=== PATIENT | male | born 1995 ===

== ENCOUNTER 2016-12-04 20:44 | Emergency (ER) | payer MEDICAID ==
[2016-12-04 20:59] VITALS: BP 128/68; PULSE 55; RESP 16; TEMP 98.1; O2SAT 100
--- NOTE | 2016-12-04 21:51 | ED PDOC ---
HPI: Male Pain Time Seen by Provider: 12/04/16 21:05 Chief Complaint (Nursing): Male Genitourinary Chief Complaint (Provider): Male Genitourinary History Per: Patient History/Exam Limitations: no limitations Onset/Duration Of Symptoms: Days Current Symptoms Are (Timing): Still Present Additional Complaint(s): 21 y/o male presents to the emergency department with a complaint of groin pain with swelling and a "cut" to the foreskin of her penis. Reports he went to [facility] last night, 12/03/2016, and received 2 antibiotics while in ED (Names unknown), and diagnosed with hydrocele. States he feels worse and had not taken medications for the relief of symptoms. Pt reports he had bloodwork done, and genital swabs and was told he would receive a call with results Of note, patient had a testicular ultrasound completed yesterday with no acute findings such as torsion and had results on him (read by me). Past Medical History Reviewed: Historical Data, Nursing Documentation, Vital Signs Vital Signs: Last Vital Signs Temp 98.1 F 12/04/16 20:56 Pulse 55 L 12/04/16 20:56 Resp 16 12/04/16 20:56 BP 128/68 12/04/16 20:56 Pulse Ox 100 12/04/16 20:56 - Medical History PMH: Sexually Transmitted Disease (Herpes) - Family History Family History: States: No Known Family Hx - Home Medications Home Medications: Ambulatory Orders Medication Instructions Recorded Acyclovir [Zovirax] 400 mg PO TID 7 Days tablet 12/04/16 Ibuprofen [Motrin] 600 mg PO Q6 #20 tab 12/04/16 - Allergies Allergies/Adverse Reactions: Allergies Allergy/AdvReac Type Severity Reaction Status Date / Time No Known Allergies Allergy Verified 12/04/16 20:56 Review of Systems ROS Statement: Except As Marked, All Systems Reviewed And Found Negative Genitourinary Male: Positive for: Penile Pain (with swelling) Physical Exam - Reviewed Nursing Documentation Reviewed: Yes Vital Signs Reviewed: Yes - Physical Exam Appears: Positive for: Non-toxic, No Acute Distress Head Exam: Positive for: ATRAUMATIC, NORMAL INSPECTION, NORMOCEPHALIC Skin: Positive for: Normal Color, Warm, Dry Male Genital Exam: Positive for: inguinal tenderness (Crease, b/l), other ( positive erythematous ulceration consisted with herpetic lesion to penile shaft ) Neurologic/Psych: Positive for: Alert, Oriented (x3) - ECG O2 Sat by Pulse Oximetry: 100 (RA) Pulse Ox Interpretation: Normal Medical Decision Making Medical Decision Making: Time: 21:15 Initial impression: Herpes Initial plan: Herpes virus discussed with Pt at length Started on Acyclovir and given motrin PO PRN Advised to follow up on results from [facility] Safe sex practices discussed as well Scribe Attestation: Documented by Brandi Alcala, acting as a scribe for Lucy Bueno PA-C Provider Scribe Attestation: All medical record entries made by the Scribe were at my direction and personally dictated by me. I have reviewed the chart and agree that the record accurately reflects my personal performance of the history, physical exam, medical decision making, and the department course for this patient. I have also personally directed, reviewed, and agree with the discharge instructions and disposition. Disposition - Clinical Impression Clinical Impression: Herpes - Patient ED Disposition Is Patient to be Admitted: No - Disposition Disposition: Routine/Home Disposition Time: 22:21 Condition: STABLE Prescriptions: Acyclovir [Zovirax] 400 mg PO TID 7 Days tablet Ibuprofen [Motrin] 600 mg PO Q6 #20 tab Instructions: Genital Herpes Simplex (ED) Forms: [facility] (Bahamian) Print Language: TURKISH
== END 2016-12-04 22:12 | disposition home or self-care (01) ==
LOC: H.ER 20:44
DX: B00.9 Herpesviral infection, unspecified (principal); N43.3 Hydrocele, unspecified